=== PATIENT | male | born 1995 | race Caucasian/White ===

== ENCOUNTER 2018-11-18 14:42 | Emergency (ER) | payer SELFPAY ==
[~2018-11-18] VITALS: Ht 175.3 cm; Wt 77.3 kg
[2018-11-18] MEDS ORDERED: CloNIDine HCL 0.1 MG TABLET PO ONE (15:45)
[2018-11-18] MEDS ORDERED: ONDANSETRON HCL 4 MG TABLET PO ONE (15:45)
[2018-11-18] MEDS ORDERED: IBUPROFEN 800 MG TABLET PO ONE (16:15)
[2018-11-18 16:31] VITALS: BP 111/64
== END 2018-11-18 16:32 | disposition home or self-care (01) ==
LOC: EMS 14:47
DX: F11.10 Opioid abuse, uncomplicated (principal); F19.10 Other psychoactive substance abuse, uncomplicated; F17.210 Nicotine dependence, cigarettes, uncomplicated; F15.90 Other stimulant use, unspecified, uncomplicated
CPT/HCPCS: 99284; 99406; Q0162